=== PATIENT | male | born 1950 | race Caucasian/White ===

== ENCOUNTER → 2017-08-05 | Outpatient (CLI) | payer MEDICARE, OTHER | END | disposition home or self-care (01) | LOC: MRI 14:45 | DX: I65.21 Occlusion and stenosis of right carotid artery (principal); M47.892 Other spondylosis, cervical region; M25.78 Osteophyte, vertebrae; M48.02 Spinal stenosis, cervical region; R26.9 Unspecified abnormalities of gait and mobility | CPT/HCPCS: 72141; 93880 ==